=== PATIENT | female | born 1960 | race Caucasian/White ===

== ENCOUNTER 2022-07-12 04:01 | Day surgery (SDC) | payer OTHER ==
[2022-07-06 13:04] VITALS: BMI 26.3
[~2022-07-12 04:01] MED LIST: IOHEXOL 300 MG/ML INFUS..BTL IV ONE; ceFAZolin SODIUM 1 GM VIAL IVPB ONE
[2022-07-12] MEDS ORDERED: BUPIVACAINE HCL/PF 0.25% (2.5MG/ML) 10 ML VIAL ONE (13:51)
[2022-07-12] MEDS ORDERED: ROCURONIUM BROMIDE 50 MG/5 ML SYRINGE ONE ×2 (14:00→15:08)
[2022-07-12] MEDS ORDERED: MIDAZOLAM HCL 2 MG/2 ML SINGLE DOSE VIAL ONE (14:00)
[2022-07-12] MEDS ORDERED: PROPOFOL 20 ML ONE (14:00)
[2022-07-12] MEDS ORDERED: ceFAZolin SODIUM 1 GM VIAL ONE (14:01)
[2022-07-12] MEDS ORDERED: ONDANSETRON 4 MG/2 ML VIAL ONE (14:01)
[2022-07-12] MEDS ORDERED: KETOROLAC TROMETHAMINE 30 MG/1 ML VIAL ONE (14:01)
[2022-07-12] MEDS ORDERED: DEXAMETHASONE SOD PHOSPHATE 4 MG/1 ML VIAL ONE (14:01)
[2022-07-12] MEDS ORDERED: LIDOCAINE HCL/PF 2% SDV 5ML VIAL ONE (14:02)
[2022-07-12] MEDS ORDERED: SUGAMMADEX SODIUM 200 MG/2 ML VIAL ONE (14:03)
[2022-07-12] MEDS ORDERED: ONDANSETRON 4 MG/2 ML VIAL IVPUSH PRN (14:12)
[2022-07-12] MEDS ORDERED: PROMETHAZINE HCL 25 MG/1 ML VIAL IVPB PRN (14:12)
[2022-07-12] MEDS ORDERED: oxyCODONE HCL 5 MG TABLET PO PRN ×2 (14:12)
[2022-07-12] MEDS ORDERED: ACETAMINOPHEN 1000 MG/100 ML BAG IVPB PRN (14:12)
[2022-07-12] MEDS ORDERED: LACTATED RINGERS SOLUTION 1,000 ML IV SCH (14:15)
[2022-07-12] MEDS ORDERED: ceFAZolin SODIUM 1 GM VIAL IVPB ONE (14:30)
[2022-07-12] MEDS ORDERED: BUPIVACAINE HCL/PF 0.25% (2.5MG/ML) 10 ML VIAL IJ ONE ×2 (14:44)
[2022-07-12] MEDS ORDERED: IOHEXOL 300 MG/ML INFUS..BTL IV ONE ×2 (14:50)
[2022-07-12 18:23] VITALS: RESP 18
[2022-07-12 19:21] VITALS: BP 100/58; PULSE 80; TEMP 98
== END 2022-07-12 19:55 | disposition home or self-care (01) ==
LOC: JASU-SURG 04:01
PROVIDERS: ATTEND Surgery
PROC: 0FT44ZZ Resection of Gallbladder, Percutaneous Endoscopic Approach (ICD-10-PCS; principal; 2022-07-12 12:00)
PROC: BF532Z0 Other Imaging of Gallbladder and Bile Ducts using Fluorescing Agent, Intraoperative (ICD-10-PCS; 2022-07-12 12:00)
DX: K80.20 Calculus of gallbladder without cholecystitis without obstruction (principal)
CPT/HCPCS: 76000-TC-FY; 88304-TC; 94010; 94760